=== PATIENT | female | born 1980 | race Caucasian/White ===

== ENCOUNTER 2020-01-24 14:41 | Outpatient (CLI) | payer OTHER, SELFPAY ==
--- NOTE | ~2020-01-24 | MM_ITS ---
EXAMINATION: MM screening candice BI w chandrika HISTORY: Screening mammogram TECHNIQUE: Craniocaudal and mediolateral oblique 3-D tomosynthesis images were obtained and synthetic 2-D images were generated. CAD analysis was submitted and interpreted. COMPARISON: No prior mammogram is available for comparison at this institution. BREAST PARENCHYMAL COMPOSITION: There are scattered areas of fibroglandular density. In FINDINGS: There is no evidence of suspicious mass, calcification, or architectural distortion to sugg est malignancy in either breast. There has been no suspicious interval change. IMPRESSION: 1. No mammographic evidence of malignancy. 2. Recommend routine screening mammography in one year. BI-RADS Category 1: Negative Reviewed, dictated and finalized at location A.
--- NOTE | ~2020-01-24 | US_ITS ---
US axilla LT DATE: 01/24/2020 14:20 INDICATION: Localized swelling, mass at left axilla TECHNIQUE: Real-time imaging and color flow imaging of left axillary soft tissues COMPARISON: None FINDINGS: There is a 7.0 x 4.6 x 10.4 mm heterogeneous hypoechoic solid mass with some calcifications . There is through transmission posterior enhancement. The sonographic appearance is benign, most lik abigail a fibroadenoma. IMPRESSION: BI-RADS Category 2: Benign Ultrasound guided biopsy is available for definitive tissue diagnosis if clinically desired. Reviewed, dictated and finalized at Location [facility]. Reviewed, dictated and finalized at location A. IMPRESSION: BI-RADS Category 2: Benign Ultrasound guided biopsy is available for definitive tissue diagnosis if clinic ally desired.
[2020-01-24 15:30] LABS: Hemoglobin 12.8 g/dL (12.0-15.0); Mean Corpuscular HGB Conc 32.8 g/dl (32-36); Mean Corpuscular Hemoglobin 27.2 pg (26-34); Mean Corpuscular Volume 82.8 fl (80-100); Mean Platelet Volume 9.1 fl (7.4-10.4); Platelet Count Result 354 k/mm3 (150-375); Red Blood Count 4.71 M/mm3 (4.2-5.4); White Blood Count 12.7 K/mm3 (4.5-10.0)
[2020-01-24 15:42] LABS: Alanine Aminotransferase 21 U/L (4-35); Albumin Level 4.2 g/dL (3.5-5.1); Alkaline Phosphatase 93 U/L (38-126); Anion Gap 7 mmol/L (8-16); Aspartate Amino Transferase 23 U/L (14-36); Bilirubin,Total 0.6 mg/dL (0.2-1.3); Blood Urea Nitrogen 9 mg/dL (7-17); Calcium 9.5 mg/dL (8.4-10.2); Carbon Dioxide 26 mmol/L (22-30); Chloride 101 mmol/L (98-107); Cholesterol 167 mg/dL (0-200); Estimated Glomerular Filt Rate > 60; Glucose 95 mg/dL (65-105); HDL Direct 38 mg/dL; Potassium 3.6 mmol/L (3.4-5.0); Sodium 134 mmol/L (137-145); Triglycerides 266 mg/dL (<150)
[2020-01-24 15:43] LABS: Band Neutrophils Percent 3 % (0-6); Neutrophils Absolute Manual 6.73 K/mm3 (1.7-7.2); Neutrophils Percent Manual 50 % (46-73); Total Cells Counted 100
[2020-01-24 15:44] LABS: Atypical Lymphocytes Present; Eosinophils Absolute Manual 0.12 K/mm3 (0.02-0.5); Eosinophils Percent Manual 1 % (0-4); Lymphocytes Absolute Manual 5.46 K/mm3 (1.1-4.5); Lymphocytes Percent Manual 43 % (18-44); Monocytes Absolute Manual 0.38 K/mm3 (0.1-0.90); Monocytes Percent Manual 3 % (3-9); Platelet Estimate Adequate (Adequate)
[2020-01-24 15:53] LABS: LDL Cholesterol Direct 72 mg/dL
== END 2020-01-24 14:42 | disposition home or self-care (01) ==
PROVIDERS: PCP Internal Medicine; Visit Provider Clinical Nurse Specialist
DX: Z13.228 Encounter for screening for other metabolic disorders (principal); Z13.220 Encounter for screening for lipoid disorders; R22.30 Localized swelling, mass and lump, unspecified upper limb; Z12.31 Encounter for screening mammogram for malignant neoplasm of breast
CPT/HCPCS: 36415; 76882; 77063; 77067; 80053; 80061; 85025

== ENCOUNTER 2022-10-24 08:31 | Outpatient (CLI) | payer OTHER, SELFPAY ==
--- NOTE | ~2022-10-24 | XR_ITS ---
Cervical Spine: AP, lateral, open-mouth views Clinical History: Pain Findings: The normal lordotic curve is maintained. The vertebral bodies and posterior elements appea r intact. The intervertebral disc spaces are well maintained. Pre-vertebral soft tissues are unremar kable. Impression: No significant abnormality is seen. [place], [place] [facility] [place]ression: No significant abnormality is seen.
== END 2022-10-24 08:32 | disposition home or self-care (01) ==
PROVIDERS: PCP Internal Medicine; Visit Provider Nurse Practitioner
DX: M54.2 Cervicalgia (principal)
CPT/HCPCS: 72050

== ENCOUNTER 2023-05-02 09:09 | Outpatient (CLI) | payer OTHER, SELFPAY ==
[2023-05-02 09:46] LABS: Basophils Percent Auto 0.4 % (0.2-1.2); Eosinophils Absolute Auto 0.2 K/mm3 (0-0.3); Hematocrit 45.6 % (37.0-47.0); Hemoglobin 15.2 g/dL (12.0-15.0); Immature Granulocyte Absolute 0.03 K/mm3 (0.00-0.031); Immature Granulocyte Percent A 0.3 % (0-0.5); Lymphocytes Absolute Auto 1.86 K/mm3 (0.9-3.2); Lymphocytes Percent Auto 16.9 % (18.3-44.2); Mean Corpuscular HGB Conc 33.3 g/dl (32-36); Mean Corpuscular Volume 86.9 fl (80-100); Mean Platelet Volume 9.2 fl (7.4-10.4); Monocytes Absolute Auto 0.6 K/mm3 (0.1-0.6); Monocytes Percent Auto 5.3 % (2.6-8.5); Neutrophils Absolute Auto 8.3 K/mm3 (1.3-6.7); Neutrophils Percent Auto 75.1 % (45.5-73.1); Platelet Count Result 318 k/mm3 (150-375); Red Blood Count 5.25 M/mm3 (4.2-5.4); Red Cell Distribution Width 12.6 % (11.5-14.5)
[2023-05-02 10:21] LABS: LDL Cholesterol Direct 75 mg/dL
[2023-05-02 10:30] LABS: Alanine Aminotransferase 134 U/L (6-35); Albumin Level 4.7 g/dL (3.5-5.1); Alkaline Phosphatase 64 U/L (38-126); Anion Gap 11 mmol/L (8-16); Aspartate Amino Transferase 168 U/L (14-36); Blood Urea Nitrogen 17 mg/dL (7-17); Calcium 8.7 mg/dL (8.4-10.2); Carbon Dioxide 24 mmol/L (22-30); Chloride 101 mmol/L (98-107); Cholesterol 210 mg/dL (0-200); Estimated Glomerular Filt Rate > 60; Glucose 114 mg/dL (65-110); HDL Direct 35 mg/dL; Potassium 4.2 mmol/L (3.4-5.0); Sodium 136 mmol/L (137-145); Triglycerides 299 mg/dL (<150)
== END 2023-05-02 09:10 | disposition home or self-care (01) ==
LOC: ANHLAB 09:11
PROVIDERS: PCP Internal Medicine; Visit Provider Nurse Practitioner
DX: Z00.00 Encounter for general adult medical examination without abnormal findings (principal); Z13.220 Encounter for screening for lipoid disorders
CPT/HCPCS: 36415; 80053; 80061; 85025

== ENCOUNTER 2023-05-03 09:27 | Outpatient (CLI) | payer OTHER, SELFPAY ==
[2023-05-03 10:00] LABS: Hemoglobin A1C 5.5 % (<5.7)
[2023-05-03 10:01] LABS: Alanine Aminotransferase 133 U/L (6-35); Albumin Level 4.5 g/dL (3.5-5.1); Alkaline Phosphatase 79 U/L (38-126); Anion Gap 10 mmol/L (8-16); Aspartate Amino Transferase 60 U/L (14-36); Bilirubin,Total 0.5 mg/dL (0.2-1.3); Blood Urea Nitrogen 16 mg/dL (7-17); Calcium 9.6 mg/dL (8.4-10.2); Carbon Dioxide 27 mmol/L (22-30); Chloride 102 mmol/L (98-107); Estimated Glomerular Filt Rate > 60; Glucose 118 mg/dL (65-110); Potassium 4.2 mmol/L (3.4-5.0); Sodium 139 mmol/L (137-145)
== END 2023-05-03 09:28 | disposition home or self-care (01) ==
LOC: ANHLAB 09:28
PROVIDERS: PCP Internal Medicine; Visit Provider Clinical Nurse Specialist
DX: R73.9 Hyperglycemia, unspecified (principal); R74.01 Elevation of levels of liver transaminase levels
CPT/HCPCS: 36415; 80053; 83036

== ENCOUNTER 2023-05-15 15:30 | Outpatient (CLI) | payer OTHER, SELFPAY ==
[2023-05-15 17:13] LABS: Alanine Aminotransferase 24 U/L (6-35); Albumin Level 4.3 g/dL (3.5-5.1); Alkaline Phosphatase 66 U/L (38-126); Anion Gap 8 mmol/L (8-16); Aspartate Amino Transferase 21 U/L (14-36); Bilirubin,Total 0.4 mg/dL (0.2-1.3); Blood Urea Nitrogen 16 mg/dL (7-17); Calcium 9.5 mg/dL (8.4-10.2); Carbon Dioxide 25 mmol/L (22-30); Chloride 104 mmol/L (98-107); Estimated Glomerular Filt Rate > 60; Glucose 94 mg/dL (65-110); Potassium 3.9 mmol/L (3.4-5.0); Sodium 137 mmol/L (137-145)
== END 2023-05-15 15:31 | disposition home or self-care (01) ==
LOC: ANHLAB 15:31
PROVIDERS: PCP Internal Medicine; Visit Provider Clinical Nurse Specialist
DX: R74.01 Elevation of levels of liver transaminase levels (principal)
CPT/HCPCS: 36415; 80053

== ENCOUNTER 2024-04-30 12:56 | Outpatient (CLI) | payer BC, SELFPAY ==
[2024-04-30 13:57] LABS: Basophils Absolute Auto 0.1 K/mm3 (0.0-0.1); Basophils Percent Auto 0.6 % (0.2-1.2); Eosinophils Absolute Auto 0.3 K/mm3 (0-0.3); Eosinophils Percent Auto 2.8 % (0-4.4); Hematocrit 41.8 % (37.0-47.0); Hemoglobin 13.8 g/dL (12.0-15.0); Immature Granulocyte Absolute 0.04 K/mm3 (0.00-0.031); Immature Granulocyte Percent A 0.4 % (0-0.5); Lymphocytes Absolute Auto 2.91 K/mm3 (0.9-3.2); Mean Corpuscular Hemoglobin 28.4 pg (26-34); Monocytes Absolute Auto 0.5 K/mm3 (0.1-0.6); Monocytes Percent Auto 5.3 % (2.6-8.5); Neutrophils Absolute Auto 5.4 K/mm3 (1.3-6.7); Neutrophils Percent Auto 58.9 % (45.5-73.1); Platelet Count Result 341 k/mm3 (150-375); Red Blood Count 4.86 M/mm3 (4.2-5.4); Red Cell Distribution Width 12.6 % (11.5-14.5); White Blood Count 9.1 K/mm3 (4.5-10.0)
[2024-04-30 14:11] LABS: Alanine Aminotransferase 31 U/L (6-35); Albumin Level 4.5 g/dL (3.5-5.1); Alkaline Phosphatase 70 U/L (38-126); Anion Gap 4 mmol/L (4-12); Aspartate Amino Transferase 25 U/L (14-36); Bilirubin,Total 0.5 mg/dL (0.2-1.3); Blood Urea Nitrogen 16 mg/dL (7-17); Calcium 9.2 mg/dL (8.4-10.2); Carbon Dioxide 24 mmol/L (22-30); Chloride 108 mmol/L (98-107); Cholesterol 184 mg/dL (0-200); Estimated Glomerular Filt Rate > 60; Glucose 100 mg/dL (65-110); HDL Direct 40 mg/dL; Potassium 4.3 mmol/L (3.4-5.0); Sodium 136 mmol/L (137-145); Triglycerides 242 mg/dL (<150)
[2024-04-30 14:22] LABS: LDL Cholesterol Direct 65 mg/dL
[2024-04-30 14:27] LABS: Vitamin D 25 Hydroxy 22.5 ng/mL
== END 2024-04-30 12:57 | disposition home or self-care (01) ==
LOC: ANHLAB 12:57
PROVIDERS: PCP Internal Medicine; Visit Provider Nurse Practitioner
DX: J45.909 Unspecified asthma, uncomplicated (principal); R73.9 Hyperglycemia, unspecified; Z68.36 Body mass index [BMI] 36.0-36.9, adult; R00.0 Tachycardia, unspecified; E55.9 Vitamin D deficiency, unspecified
CPT/HCPCS: 36415; 80053; 80061; 82306; 84443; 85025

== ENCOUNTER 2024-07-24 21:18 | Inpatient (IN) | payer BC, SELFPAY ==
--- NOTE | ~2024-07-24 | XR_ITS ---
XR chest 1V portable DATE: 07/24/2024 22:26 INDICATION: Chest pain TECHNIQUE: 2 portable supine AP views COMPARISON: None FINDINGS: Normal heart size. No hilar or mediastinal enlargement. No pulmonary infiltrate or consolid ation, pleural effusion or pulmonary vascular congestion or pneumothorax. Included skeletal structures are unremarkable. Status post cholecystectomy. IMPRESSION: No active cardiopulmonary disease Reviewed, dictated and finalized at location A.
--- NOTE | ~2024-07-24 | CT_ITS ---
CLINICAL INDICATION: Nausea vomiting and diarrhea COMPARISON: None. Reference is made to an ultrasound examination of the pelvis performed 10/17/2010 de monstrated multiple cysts within the cervix. TECHNIQUE: Multiple contiguous axial images of the abdomen and pelvis were performed following the ad ministration of with 100 mL Omnipaque-350 intravenous contrast The dose-length product (DLP) was 1013.50 mGy-cm. Automated exposure control and iterative reconstruction technique were employed. FINDINGS/OBSERVATIONS: Visualized lower thorax: The visualized portions of the bilateral lung bases are clear. Liver: The liver is not entirely included on the submitted images, limiting its evaluation. The included portions of the liver demonstrates fatty infiltration and homogeneous enhancement. Gallbladder and biliary system: The gallbladder is surgically absent. Pancreas: The pancreas enhances homogeneously without ductal dilatation. Spleen: The spleen enhances homogeneously and is not enlarged measuring 8 cm in longitudinal dimension. Kidneys: The bilateral kidneys enhance symmetrically without hydronephrosis or renal calculi. Adrenal glands: Unremarkable. Gastrointestinal tract: Fecal stasis within the colon. Appendix: The air-filled appendix is of normal caliber (axial series, images 122 through 132) Vasculature: Unremarkable. Lymph nodes: No pathologically enlarged or morphologically suspicious lymph nodes within the retroperitoneum or at the root of the mesentery. Pelvic structures: The bladder is minimally distended, and otherwise unremarkable. The uterus is anteverted and anteflexed and demonstrates multiple areas of decreased attenuation with in the lower uterine segment, corresponding to patient's prior ultrasound examination. Body wall and musculoskeletal: No significant degenerative disease within the lower thoracic or lumbosacral spine. IMPRESSION: No acute pathology is identified within the abdomen or pelvis, as detailed above. Findings within the lower uterine segment/cervix corresponding to prior ultrasound more than 10 years earlier for which additional ultrasound is recommended, if not already performed. Reviewed, dictated and finalized at location A. IMPRESSION: No acute pathology is identified within the abdomen or pelvis, as detailed abov e. Findings within the lower uterine segment/cervix corresponding to prior ultraso und more than 10 years earlier for which additional ultrasound is recommended, if not already performed.
--- NOTE | 2024-07-24 21:19 | ECG_ITS ---
Test Date: 2024-07-24 21:27:09 Measurements Intervals [place] Rate: 95 P: 53 CT: 152 QRS: 46 QRSD: 89 T: 49 QT: 373 QTc: 470 Interpretive Statements SINUS RHYTHM LOW QRS VOLTAGE IN PRECORDIAL LEADS [QRS DEFLECTION < 1.0 mV IN CHEST LEADS] No previous ECG available for comparison Electronically Signed On 07-25-2024 13:22:55 CDT by Summer Selby M.D.
--- OUTSIDE RECORDS SUMMARY | 2024-07-24 21:20 | XMS_ITS | Clinical Summary ---
Author Organization [facility] Address [address] [place] [address] Care Team Providers Care Clinical Implementation Specialist Name Role Phone Aron Maxwell DO Primary Care Provider [phone] Source Comments [facility],non-owned Affiliates and Associated Physician Practices is amultiple site organization consisting of ambulatory clinics and hospital sitesin [place], [place], [place] and [place]. This disclosure is being madepursuant to the Care Everywhere program and may not contain all information available regarding this patient. Last updated 18.[facility] Allergies No known active allergies Medications * Be aware that medications may not be up to date on this document. Alwaysverify current medications with the patient. Medication Sig Dispensed Refills Start Date End Date Status Omeprazole (PRILOSEC PO) Active albuterol HFA (PROVENTIL;VENTOLIN;P ROAIR) 108 (90 BASE) MCG/ACT inhaler Inhale 2 puffs by mouth every 4 hours as needed Active albuterol (PROVENTIL;VENTOLIN) (2.5 MG/3ML) 0.083% nebulizer solutionIndications:A cute bronchitis with asthma with acute exacerbation (HCC) Inhale 2.5 mg by mouth every 6 hours as needed for Shortness of Breath or Wheezing 25 vial 06/27/2018 Active budesonide-formoterol (SYMBICORT) 80-4.5 MCG/ACT inhalerIndications:As thma Inhale 2 puffs by mouth 2 times daily Reasons: Asthma 1 Inhaler 06/27/2018 Active Social History Tobacco Use Types Packs/Day Years Used Date Smoking Tobacco: Former Cigarettes Q uit: 2016 Smokeless Tobacco: Never Sex and Gender Information Value Date Recorded Sex Assigned at Not on file Gender Identity Not on file Sexual Orientation Not on file Last Filed Vital Signs Vital Sign Reading Time Taken Comments Blood Pressure 130/88 06/27/2018 12:00 PM HAND EDGE BANDER Pulse 95 06/27/2018 12:00 PM HAND EDGE BANDER Temperature 36.4 C (97.6 F) 06/27/2018 12:00 PM HAND EDGE BANDER Respiratory Rate 15 06/27/2018 12:00 PM HAND EDGE BANDER Oxygen Saturation 99% 06/27/2018 12:00 PM HAND EDGE BANDER Inhaled Oxygen Concentration - - Weight 81.6 kg (180 lb) 06/27/2018 12:00 PM HAND EDGE BANDER Height 165.1 cm (5' 5 ) 06/27/2018 12:00 PM HAND EDGE BANDER Body Mass Index 29.95 06/27/2018 12:00 PM HAND EDGE BANDER Plan of Treatment Health Maintenance Due Date Last Done Comments COLOGUARD (AGES 45-75) - COL ON CA SCREENING 1979 COLON MONITORING 1979 COLONOSCOPY - COLON CA SCREENING 1979 CT COLONOGRAPHY - COLON CA SCREENING 1979 Colorectal Cancer Screening 1979 FIT - COLON CA SCREENING 1979 FLEX SIG - COLON CA SCREENING 1979 LIPID TESTING 1979 MAMMOGRAM 1979 PAP SMEAR 1979 HIV SCREENING 1994 HEPATITIS C SCREENING 03/20/1997 DTAP/TDAP/TD VACCINES (1 - Tdap) 1998 HEPATITIS B VACCINE (1 of 3 - 19+ 3-dose series) 1998 COVID-19 VACCINE (2023-2 5 season) 2024 INFLUENZA VACCINE (#1) 2024 DEPRESSION SCREENING 05/05/2024 ZOSTER VACCINE (1 of 2) 2029 HIB VACCINE Aged Out No longer eligi ble based on patient's age to complete this topic HPV VACCINE Aged Out No longer eligi ble based on patient's age to complete this topic MENINGOCOCCAL (Group B) VACC INE SHARED DECISION-MAKING Aged Out No longer eligibl e based on patient's age to complete this topic MENINGOCOCCAL GROUPS A/C/Y/W VACCINE Aged Out No longer eligible b ased on patient's age to complete this topic PNEUMOCOCCAL VACCINE Aged Out No long er eligible based on patient's age to complete this topic Care Teams Clinical Implementation Specialist Relationship Specialty Start Date End Date Aron Maxwell DO PCP - General Internal Medicine 05/14/17
[2024-07-24 21:47] LABS: Basophils Percent Auto 0.3 % (0.2-1.2); Eosinophils Percent Auto 0.3 % (0-4.4); Hematocrit 43.2 % (37.0-47.0); Hemoglobin 14.6 g/dL (12.0-15.0); Immature Granulocyte Absolute 0.12 K/mm3 (0.00-0.031); Immature Granulocyte Percent A 0.8 % (0-0.5); Lymphocytes Absolute Auto 7.06 K/mm3 (0.9-3.2); Lymphocytes Percent Auto 47.5 % (18.3-44.2); Mean Corpuscular HGB Conc 33.8 g/dl (32-36); Mean Corpuscular Hemoglobin 28.6 pg (26-34); Mean Corpuscular Volume 84.7 fl (80-100); Mean Platelet Volume 9.2 fl (7.4-10.4); Monocytes Absolute Auto 0.8 K/mm3 (0.1-0.6); Monocytes Percent Auto 5.3 % (2.6-8.5); Neutrophils Absolute Auto 6.8 K/mm3 (1.3-6.7); Neutrophils Percent Auto 45.8 % (45.5-73.1); Platelet Count Result 396 k/mm3 (150-375); Red Cell Distribution Width 13.2 % (11.5-14.5); White Blood Count 14.9 K/mm3 (4.5-10.0)
[2024-07-24 22:00] LABS: INR 0.9; Partial Thromboplastin Time 23.9 Seconds (22.3-36.8); Prothrombin Time 12.5 Seconds (11.1-14.7)
--- OUTSIDE RECORDS SUMMARY | 2024-07-24 22:01 | XMS_ITS | Clinical Summary ---
Author Organization [facility] [employer] Address [address] [place] [address] Care Team Providers Care Tank Pumper Name Role Phone Aron Maxwell DO Primary Care Provider [phone] Source Comments [facility] [employer],non-owned Affiliates and Associated Physician Practices is amultiple site organization consisting of ambulatory clinics and hospital sitesin [place], [place], [place] and [place]. This disclosure is being madepursuant to the Care Everywhere program and may not contain all information available regarding this patient. Last updated 18.[facility] [employer] Allergies No known active allergies Medications * [...] Comments Blood Pressure 130/88 06/27/2018 12:00 PM FUR TRIMMING MACHINE OPERATOR Pulse 95 06/27/2018 12:00 PM FUR TRIMMING MACHINE OPERATOR Temperature 36.4 C (97.6 F) 06/27/2018 12:00 PM FUR TRIMMING MACHINE OPERATOR Respiratory Rate 15 06/27/2018 12:00 PM FUR TRIMMING MACHINE OPERATOR Oxygen Saturation 99% 06/27/2018 12:00 PM FUR TRIMMING MACHINE OPERATOR Inhaled Oxygen Concentration - - Weight 81.6 kg (180 lb) 06/27/2018 12:00 PM FUR TRIMMING MACHINE OPERATOR Height 165.1 cm (5' 5 ) 06/27/2018 12:00 PM FUR TRIMMING MACHINE OPERATOR Body Mass Index 29.95 06/27/2018 12:00 PM FUR TRIMMING MACHINE OPERATOR Plan of Treatment Health Maintenance Due Date [...] age to complete this topic Care Teams Tank Pumper Relationship Specialty Start Date End Date Aron Maxwell DO PCP - General Internal Medicine 05/14/17
[2024-07-24 22:03] LABS: Alanine Aminotransferase 33 U/L (6-35); Albumin Level 4.5 g/dL (3.5-5.1); Alkaline Phosphatase 99 U/L (38-126); Anion Gap 13 mmol/L (4-12); Aspartate Amino Transferase 40 U/L (14-36); Bilirubin,Total 0.4 mg/dL (0.2-1.3); Blood Urea Nitrogen 14 mg/dL (7-17); Calcium 9.7 mg/dL (8.4-10.2); Carbon Dioxide 19 mmol/L (22-30); Chloride 106 mmol/L (98-107); Estimated CRCL calculation 86 ml/min; Estimated Glomerular Filt Rate > 60; Glucose 164 mg/dL (65-110); Potassium 3.7 mmol/L (3.4-5.0); Sodium 138 mmol/L (137-145)
[2024-07-24 22:07] LABS: Lipase 3279 U/L (23-300)
[2024-07-24 22:11] VITALS: BP 136/101; PULSE 87; RESP 19; O2SAT 95
[2024-07-24 22:11] LABS: Troponin I < 0.012 ng/mL (0.000-0.034)
--- NOTE | 2024-07-24 22:27 | ED_ITS ---
HPI - Nausea/Vomiting/Diarrhea General Chief complaint: Nausea/Vomiting/Diarrhea Stated complaint: throwing up, chest and back pain Time Seen by Provider: 07/24/24 21:32 History of Present Illness HPI Narrative: 44-year-old female with history of tubal ligation, s/p cholecystectomy, asthma presents to the emergency department for epigastric abdominal pain that radiates to her back and chest pain that started at 8:00 p.m. tonight after eating quail eggs. Patient states she has had nausea, vomiting and watery diarrhea. She states she has never had this happen before. Denies fever. No aggravating or alleviating factors. Denies cough or congestion, shortness of breath. Denies recent surgeries or hospitalizations, recent antibiotic use, travel. She does not drink alcohol. Related Data Allergies Allergy/AdvReac Type Severity Reaction Status Date / Time adhesive tape Allergy Unknown skin Verified 06/10/24 15:24 breakdown TAPE Allergy Mild skin Uncoded 06/10/24 15:24 [email or web address] Review of Systems 2 Review of Systems: All systems reviewed & are unremarkable except as noted in HPI and below PMFSH Past Medical History Medical History (Updated 07/25/24 @ 05:08 by Jacquelyn Cook PA-C) Hernia Osteoarthritis Heartburn Asthma Allergies Surgical History Surgical History (Updated 07/25/24 @ 05:06 by Jacquelyn Cook PA-C) History of endometrial ablation (2010) History of arthroscopy of hip (09/2015) History of cholecystectomy (2001) History of bilateral tubal ligation (2004) Family History Family History Mother Hypertension Asthma Family history of diabetes mellitus in first degree relative Sibling Asthma Family history of diabetes mellitus in first degree relative Father Patient's father is in good health Grandparent Diabetes mellitus Other Breast cancer Social History Social History (Updated 07/25/24 @ 02:08 by Jacquelyn Cook PA-C) Social History: Surrogate medical decision maker: Clint Arias, spouse. Code status: Full code. Smoking packs per day: 1 Smoking cigarettes per day: 20.0 Years smoked: 20 Smoking pack-years: 20.00 Smoking status: Former smoker Alcohol intake: never Alcohol use details: a couple times a year Substance use: never Substance use type: does not use Do You Feel Safe in your Home?: Yes Lack of Transportation: No Lack of Food: Never True Current Housing: I Have Housing Concerned About Future Housing: No Difficulty Paying Gas/Electric Bills: No Difficulty Paying for Meds: No Currently Unemployed: No Education: High School Diploma/GED Difficulty w/ Childcare or Family Care: No Living arrangements: with family 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 HEAD: Normocephalic, atraumatic. EYES: EOMI. ENT: Nares clear, no rhinorrhea or epistaxis. Mucous membranes moist. NECK: Supple. CHEST: Clear to auscultation. No respiratory distress. HEART: Regular rate and rhythm. No murmur heard. Normal peripheral pulses. ABDOMEN: Normoactive bowel sounds. Abdomen soft with tenderness in the epigastrium with voluntary guarding, no rebound or rigidity. No CVA tenderness EXTREMITIES: Normal range of motion. No edema. SKIN: Warm, dry, no rash. NEURO: No focal deficits. Alert and oriented x3 Course Vital Signs Vital signs: Vital Signs Pulse Rate 87 07/24/24 22:11 Respiratory Rate 19 07/24/24 22:11 Blood Pressure 136/101 H 07/24/24 22:11 Pulse Oximetry 95 07/24/24 22:11 Temperature 98.7 F 07/25/24 14:00 Pulse Rate 82 07/25/24 14:00 Respiratory Rate 18 07/25/24 14:00 Blood Pressure 108/72 07/25/24 14:00 Pulse Oximetry 99 07/25/24 14:00 Oxygen Delivery Room Air 07/25/24 09:38 Fraction of Inspired Oxygen 21 07/25/24 08:53 MDM - Nausea/Vomiting/Diarrhea MDM Narrative Medical decision making narrative: 44-year-old female presents to emergency department for sudden-onset epigastric abdominal pain that radiates to her back, chest pain, N/V/D that started at 8:00 p.m. today after eating quail eggs. Vitals with elevated blood pressure, otherwise unremarkable. Patient is ill-appearing. Abdomen is soft with tenderness involuntary guarding in the epigastrium. CBC with leukocytosis of 14.9, no anemia. Chemistries with a bicarb of 19 and anion gap of 13, likely dehydration. Fluids provided. Lipase is elevated to 3279 indicating pancreatitis which is consistent with patient's presentation. Her AST is mildly elevated at 40, ALT normal at 33, alk-phos and bilirubin are within normal limits. Patient denies use of EtOH, she is s/p cholecystectomy. EKG shows normal sinus rhythm with a rate of 95 ppm, normal CT interval, normal QRS duration, normal QTC, no ischemic changes. Troponin undetectable. C diff negative. CT abdomen pelvis shows hepatic steatosis, multiple cystic lesions in the cervix which are likely nabothian cysts, tubal ligation, cholecystectomy. Patient updated on results. She was given IV fluids, morphine, Zofran and Pepcid with minimal improvement. Plan to admit for hydration and pain control. Patient is agreeable with this. Discussed with hospitalist BARRON Valladares agrees to admission. Lab Data 07/25/24 05:55 07/25/24 05:55 Labs: Lab Results 07/24/24 07/24/24 07/24/24 Range/Units 21:33 22:32 23:25 WBC 14.9 H (4.5-10.0) K/mm3 RBC 5.10 (4.2-5.4) M/mm3 Hgb 14.6 (12.0-15.0) g/dL Hct 43.2 (37.0-47.0) % MCV 84.7 (80-100) fl MCH 28.6 (26-34) pg MCHC 33.8 (32-36) g/dl RDW 13.2 (11.5-14.5) % Plt Count 396 H (150-375) k/mm3 MPV 9.2 (7.4-10.4) fl Immature Gran % (Auto) 0.8 H (0-0.5) % Neut % (Auto) 45.8 (45.5-73.1) % Lymph % (Auto) 47.5 H (18.3-44.2) % [place] % (Auto) 5.3 (2.6-8.5) % Eos % (Auto) 0.3 (0-4.4) % Baso % (Auto) 0.3 (0.2-1.2) % Lymph # (Auto) 7.06 H (0.9-3.2) K/mm3 [place] # (Auto) 0.8 H (0.1-0.6) K/mm3 Eos # (Auto) 0.0 (0-0.3) K/mm3 Baso # (Auto) 0.0 (0.0-0.1) K/mm3 Abs Immat Gran (auto) 0.12 H (0.00-0.031) K/mm3 Absolute Neuts (auto) 6.8 H (1.3-6.7) K/mm3 Absolute Nucleated RBC 0.000 (0.0-0.012) K/mm3 Nucleated RBC % 0.0 (0.0-0.2) % PT 12.5 (11.1-14.7) Seconds INR 0.9 APTT 23.9 (22.3-36.8) Seconds Sodium 138 (137-145) mmol/L Potassium 3.7 (3.4-5.0) mmol/L Chloride 106 (98-107) mmol/L Carbon Dioxide 19 L (22-30) mmol/L Anion Gap 13 H (4-12) mmol/L BUN 14 (7-17) mg/dL Creatinine 0.76 (0.7-1.0) mg/dL Estim Creat Clear Calc 86 ml/min Estimated GFR > 60 (59 - ) Glucose 164 H (65-110) mg/dL Lactic Acid 2.0 (0.7-2.0) mmol/L Calcium 9.7 (8.4-10.2) mg/dL Total Bilirubin 0.4 (0.2-1.3) mg/dL AST 40 H (14-36) U/L ALT 33 (6-35) U/L Alkaline Phosphatase 99 (38-126) U/L Troponin I < 0.012 (0.000-0.034) ng/mL Total Protein 8.0 (6.3-8.2) g/dL Albumin 4.5 (3.5-5.1) g/dL Triglycerides (<150) mg/dL Lipase 3279 H (23-300) U/L Urine Color (Yellow) Urine Appearance (Clear) Urine pH (5.0-9.0) Ur Specific [place] (1.001-1.035) Urine Protein (Negative) mg/dL Urine Glucose (UA) (Negative) mg/dL Urine Ketones (Negative) mg/dL Ur Blood (Man) (Negative) Urine Nitrate (Negative) Urine Bilirubin (Negative) Urine Urobilinogen (<2.0) mg/dL Leukocyte Esterase Rfl (Negative) KHUSHBOO/UL Urine RBC (0-2) /hpf Urine WBC (0-3) /hpf Ur Squamous Epith Cells (Few) /hpf Urine Bacteria /hpf Urine Casts C. difficile (PCR) Negative (NEGATIVE) 07/25/24 07/25/24 07/25/24 Range/Units 00:41 01:13 05:55 WBC 17.9 H (4.5-10.0) K/mm3 RBC 4.13 L (4.2-5.4) M/mm3 Hgb 12.0 (12.0-15.0) g/dL Hct 36.1 L (37.0-47.0) % MCV 87.4 (80-100) fl MCH 29.1 (26-34) pg MCHC 33.2 (32-36) g/dl RDW 13.4 (11.5-14.5) % Plt Count 280 (150-375) k/mm3 MPV 9.2 (7.4-10.4) fl Immature Gran % (Auto) 0.7 H (0-0.5) % Neut % (Auto) 78.1 H (45.5-73.1) % Lymph % (Auto) 15.5 L (18.3-44.2) % [place] % (Auto) 3.1 (2.6-8.5) % Eos % (Auto) 2.3 (0-4.4) % Baso % (Auto) 0.3 (0.2-1.2) % Lymph # (Auto) 2.77 (0.9-3.2) K/mm3 [place] # (Auto) 0.6 (0.1-0.6) K/mm3 Eos # (Auto) 0.4 H (0-0.3) K/mm3 Baso # (Auto) 0.1 (0.0-0.1) K/mm3 Abs Immat Gran (auto) 0.12 H (0.00-0.031) K/mm3 Absolute Neuts (auto) 14.0 H (1.3-6.7) K/mm3 Absolute Nucleated RBC 0.000 (0.0-0.012) K/mm3 Nucleated RBC % 0.0 (0.0-0.2) % PT (11.1-14.7) Seconds INR APTT (22.3-36.8) Seconds Sodium 139 (137-145) mmol/L Potassium 4.1 (3.4-5.0) mmol/L Chloride 108 H (98-107) mmol/L Carbon Dioxide 23 (22-30) mmol/L Anion Gap 8 (4-12) mmol/L BUN 13 (7-17) mg/dL Creatinine 0.81 (0.7-1.0) mg/dL Estim Creat Clear Calc 82 ml/min Estimated GFR > 60 (59 - ) Glucose 110 (65-110) mg/dL Lactic Acid (0.7-2.0) mmol/L Calcium 8.0 L (8.4-10.2) mg/dL Total Bilirubin 0.4 (0.2-1.3) mg/dL AST 50 H (14-36) U/L ALT 57 H (6-35) U/L Alkaline Phosphatase 68 (38-126) U/L Troponin I < 0.012 < 0.012 (0.000-0.034) ng/mL Total Protein 6.0 L (6.3-8.2) g/dL Albumin 3.4 L (3.5-5.1) g/dL Triglycerides 124 (<150) mg/dL Lipase (23-300) U/L Urine Color Yellow (Yellow) Urine Appearance Clear (Clear) Urine pH 5.0 (5.0-9.0) Ur Specific [place] > 1.045 H (1.001-1.035) Urine Protein Trace (Negative) mg/dL Urine Glucose (UA) Negative (Negative) mg/dL Urine Ketones Trace H (Negative) mg/dL Ur Blood (Man) Negative (Negative) Urine Nitrate Negative (Negative) Urine Bilirubin Negative (Negative) Urine Urobilinogen 0.2 (<2.0) mg/dL Leukocyte Esterase Rfl Negative (Negative) KHUSHBOO/UL Urine RBC 0-2 (0-2) /hpf Urine WBC 0-5 (0-3) /hpf Ur Squamous Epith Cells None seen (Few) /hpf Urine Bacteria None seen /hpf Urine Casts 0-2 C. difficile (PCR) (NEGATIVE) 07/25/24 Range/Units 05:55 WBC (4.5-10.0) K/mm3 RBC (4.2-5.4) M/mm3 Hgb (12.0-15.0) g/dL Hct (37.0-47.0) % MCV (80-100) fl MCH (26-34) pg MCHC (32-36) g/dl RDW (11.5-14.5) % Plt Count (150-375) k/mm3 MPV (7.4-10.4) fl Immature Gran % (Auto) (0-0.5) % Neut % (Auto) (45.5-73.1) % Lymph % (Auto) (18.3-44.2) % [place] % (Auto) (2.6-8.5) % Eos % (Auto) (0-4.4) % Baso % (Auto) (0.2-1.2) % Lymph # (Auto) (0.9-3.2) K/mm3 [place] # (Auto) (0.1-0.6) K/mm3 Eos # (Auto) (0-0.3) K/mm3 Baso # (Auto) (0.0-0.1) K/mm3 Abs Immat Gran (auto) (0.00-0.031) K/mm3 Absolute Neuts (auto) (1.3-6.7) K/mm3 Absolute Nucleated RBC (0.0-0.012) K/mm3 Nucleated RBC % (0.0-0.2) % PT (11.1-14.7) Seconds INR APTT (22.3-36.8) Seconds Sodium (137-145) mmol/L Potassium (3.4-5.0) mmol/L Chloride (98-107) mmol/L Carbon Dioxide (22-30) mmol/L Anion Gap (4-12) mmol/L BUN (7-17) mg/dL Creatinine (0.7-1.0) mg/dL Estim Creat Clear Calc ml/min Estimated GFR (59 - ) Glucose (65-110) mg/dL Lactic Acid (0.7-2.0) mmol/L Calcium (8.4-10.2) mg/dL Total Bilirubin (0.2-1.3) mg/dL AST (14-36) U/L ALT (6-35) U/L Alkaline Phosphatase (38-126) U/L Troponin I (0.000-0.034) ng/mL Total Protein (6.3-8.2) g/dL Albumin (3.5-5.1) g/dL Triglycerides Cancelled (<150) mg/dL Lipase 636 H (23-300) U/L Urine Color (Yellow) Urine Appearance (Clear) Urine pH (5.0-9.0) Ur Specific [place] (1.001-1.035) Urine Protein (Negative) mg/dL Urine Glucose (UA) (Negative) mg/dL Urine Ketones (Negative) mg/dL Ur Blood (Man) (Negative) Urine Nitrate (Negative) Urine Bilirubin (Negative) Urine Urobilinogen (<2.0) mg/dL Leukocyte Esterase Rfl (Negative) KHUSHBOO/UL Urine RBC (0-2) /hpf Urine WBC (0-3) /hpf Ur Squamous Epith Cells (Few) /hpf Urine Bacteria /hpf Urine Casts C. difficile (PCR) (NEGATIVE) Discharge Plan Discharge Clinical Impression: Cervical cyst Pancreatitis Qualifiers: Chronicity: acute Pancreatitis type: unspecified pancreatitis type Acute pancreatitis complication: unspecified Qualified Code(s): K85.90 - Acute pancreatitis without necrosis or infection, unspecified Patient Disposition: Still a Patient Condition: Stable
[2024-07-24 22:29] VITALS: TEMP 36.4
[2024-07-24 23:24] LABS: Toxigenic C. Diff NEGATIVE (NEGATIVE)
[2024-07-24] MEDS: FAMOTIDINE 20 MG/2 ML VIAL IV PUSH (23:37)
[2024-07-24] MEDS: ONDANSETRON INJ 4 MG/2 ML VIAL IV PUSH (23:37)
[2024-07-24] MEDS: SODIUM CHLORIDE 0.9% IV 1,000 ML 999 ML IV CONT (23:37)
[2024-07-25 01:06] LABS: Troponin I < 0.012 ng/mL (0.000-0.034)
[2024-07-25 01:23] LABS: Add Urine Microscopic? YES; Appearance Urine Clear (Clear); Bacteria Urine None Seen /hpf; Bilirubin Urine Negative (Negative); Blood Urine Negative (Negative); Color Urine Yellow (Yellow); Glucose Urine UA Negative (Negative); Ketones Urine Trace mg/dL (Negative); Leukocyte Esterase Ur Negative LEU/UL (Negative); Nitrate Urine Negative (Negative); Non Pathogenic Casts 0-2; Protein Urine Trace mg/dL (Negative); RBC Urine 0-2 /hpf (0-2); Specific Grav Ur > 1.045 (1.001-1.035); Squamous Epithelial Cell Urine None Seen /hpf (Few); Urobilinogen Urine 0.2 mg/dL (<2.0); WBC Urine 0-5 /hpf (0-3)
--- NOTE | 2024-07-25 02:05 | PM.IMHP ---
H&P: HPI History of Present Illness Date/Time: 07/25/24 02:05 Chief Complaint: Abdominal pain, nausea, vomiting, diarrhea. Narrative: This is a pleasant 44-year-old female with asthma who presented to the emergency department via private vehicle with complaints of abdominal pain, nausea, vomiting, and diarrhea peer. The patient provides the following history. She had some chips and a few quail eggs for snack last evening and several hours later she developed severe aching pain throughout the upper abdomen and low chest radiating through to the back. Shortly thereafter she developed nausea and reports having innumerable bouts emesis and watery diarrhea. The vomiting has ceased but she continues to have severe diarrhea which she has not been able to control. Additionally she has had some sweats but she denies fever and chills. She also denies syncope, near syncope, exertional chest pain, pleuritic pain, shortness of breath, hematemesis, melena, hematochezia, dysuria, and hematuria. No one in her household has similar symptoms and she has no known sick contacts. In the ED: She was afebrile on arrival with stable vital signs. Labs were significant for WBC count 14.9, carbon dioxide 18, anion gap 13, glucose 164, AST 40, lipase 3279. Urine was concentrated. CT of the abdomen and pelvis was without acute findings. She was given a L of normal saline and famotidine 20 mg and she is being admitted in this setting for further treatment. Review of Systems Review of Systems: 12 systems were reviewed and are negative except for as per HPI. [facility] Past Medical History Medical History (Updated 07/25/24 @ 05:08 by Jacquelyn Cook PA-C) Hernia Osteoarthritis Heartburn Asthma Allergies Surgical History Surgical History (Updated 07/25/24 @ 05:06 by Jacquelyn Cook PA-C) History of endometrial ablation (2010) History of arthroscopy of hip (09/2015) History of cholecystectomy (2001) History of bilateral tubal ligation (2004) Family History Family History Mother Hypertension Asthma Family history of diabetes mellitus in first degree relative Sibling Asthma Family history of diabetes mellitus in first degree relative Father Patient's father is in good health Grandparent Diabetes mellitus Other Breast cancer Social History Social History (Updated 07/25/24 @ 02:08 by Jacquelyn Cook PA-C) Social History: Surrogate medical decision maker: Clint Arias, spouse. Code status: Full code. Smoking packs per day: 1 Smoking cigarettes per day: 20.0 Years smoked: 20 Smoking pack-years: 20.00 Smoking status: Former smoker Alcohol intake: never Alcohol use details: a couple times a year Substance use: never Substance use type: does not use Do You Feel Safe in your Home?: Yes Lack of Transportation: No Lack of Food: Never True Current Housing: I Have Housing Concerned About Future Housing: No Difficulty Paying Gas/Electric Bills: No Difficulty Paying for Meds: No Currently Unemployed: No Education: High School Diploma/GED Difficulty w/ Childcare or Family Care: No Living arrangements: with family Occupation/Education: occupation 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 Spiritual care concerns: No Meds Home Medications and Allergies Home Medications ?Medication ?Instructions ?Recorded ?Confirmed ?Type cyclobenzaprine 10 mg tablet 10 mg PO BID PRN muscle spasm #30 04/30/24 07/25/24 Rx tabs cholecalciferol (vitamin D3) 1,250 1,250 mcg PO WEEKLY #8 caps 05/07/24 07/25/24 Rx mcg (50,000 unit) capsule albuterol sulfate 90 mcg/actuation 1 inh inhalation Q4-6H PRN 06/09/24 07/25/24 Rx aerosol inhaler shortness of breath or wheezing #8.5 grams fluticasone propionate 45 See Rx Instructions .Route 06/10/24 07/25/24 Rx mcg-salmeterol 21 mcg/actuation .COMPLEX #12 grams HFA inhaler Allergies Allergy/AdvReac Type Severity Reaction Status Date / Time adhesive tape Allergy Unknown skin Verified 06/10/24 15:24 breakdown TAPE Allergy Mild skin Uncoded 06/10/24 15:24 [id number] Vital Signs Vital Signs - 24 hr 07/24/24 22:11 07/24/24 22:29 Temperature 97.6 F Pulse Rate 87 Respiratory Rate 19 Blood Pressure 136/101 H Pulse Oximetry 95 Exam Narrative: General: Moderately ill-appearing female in the semi-Hurley position in bed. Weight: 81.1 kg. BMI: 30.0. HEENT: PERRL, EOMI. Sclera anicteric. Conjunctiva mildly injected. Tacky mucous membranes. Neck: Supple. Respiratory: Lungs are clear to auscultation bilaterally. Cardiovascular: Regular rate and rhythm with S1-S2. No murmur, rub, or gallop. Gastrointestinal: Abdomen is soft and nondistended with slightly hyperactive bowel sounds. She is tender to palpation throughout the upper abdomen, more so in the left upper quadrant, and somewhat in the periumbilical region. No guarding or rebound tenderness. Skin: Warm and dry. No rash or lesions on limited exam. Extremities: No cyanosis, clubbing, or edema. Radial and pedal pulses intact. Neurological: Alert. Cranial nerves 2-12 are grossly intact. No gross focal deficits to casual conversation. Psychiatric: Pleasant and cooperative with normal mood and affect. Judgment and insight intact. H&P: Results Labs Labs: Short CBC 07/24/24 Range/Units 21:33 WBC 14.9 H (4.5-10.0) K/mm3 Hgb 14.6 (12.0-15.0) g/dL Hct 43.2 (37.0-47.0) % Plt Count 396 H (150-375) k/mm3 BMP 07/24/24 21:33 Sodium 138 Potassium 3.7 Chloride 106 Carbon Dioxide 19 L BUN 14 Creatinine 0.76 Glucose 164 H Calcium 9.7 Cardiac Enzymes 07/24/24 07/25/24 Range/Units 21:33 00:41 Troponin I < 0.012 < 0.012 (0.000-0.034) ng/mL Liver Function 07/24/24 Range/Units 21:33 Total Bilirubin 0.4 (0.2-1.3) mg/dL AST 40 H (14-36) U/L ALT 33 (6-35) U/L Alkaline Phosphatase 99 (38-126) U/L Albumin 4.5 (3.5-5.1) g/dL Imaging CT scan - abdomen: Radiologist's impression: Preliminary read from [facility]: 1. Multiple cystic lesions in the cervix, likely nabothian cyst. Assessment and Plan Assessment and plan (1) Pancreatitis: Qualifiers: Acute pancreatitis complication: unspecified Chronicity: acute Pancreatitis type: unspecified pancreatitis type Qualified Code(s): K85.90 - Acute pancreatitis without necrosis or infection, unspecified Code(s): K85.90 - Acute pancreatitis without necrosis or infection, unspecified Status: Acute (2) Gastroenteritis: Code(s): K52.9 - Noninfective gastroenteritis and colitis, unspecified Status: Acute (3) Dehydration: Code(s): E86.0 - Dehydration Status: Acute Plan The patient presented to the emergency department for evaluation of fairly sudden onset of upper abdominal pain, nausea, vomiting, and diarrhea last evening as detailed in HPI. Labs, imaging, EKG, and all reports were personally reviewed. It sounds as though she has gastroenteritis however with acute onset would consider food poisoning as well. Lipase was elevated at 3279 and although her pancreas was unremarkable on CT scan she does have tenderness to palpation in this region. She looks quite dry and is being aggressively hydrated. Analgesics and antiemetics are available as needed. She will be on bowel rest for now but can have a few ice chips here and there. She has no previous history of pancreatitis and denies significant alcohol use, new medications, and high triglycerides. Stool studies have been ordered and are pending. No acute issues with regards to her asthma. Her home medications will be reviewed and resumed as appropriate. Findings and treatment plan were discussed with the patient. Questions were solicited and answered to satisfaction. The patient's medical management will be taken over by the hospitalist team in a.m. Quality VTE Prophylaxis VTE prophylaxis: pharmacologic ordered The patient has been admitted under observation status. Hospitalist MIPS Advance Care Plan I have confirmed that the patient's Advanced Care Plan is present, code status is documented, or surrogate decision maker is listed in patient medical record.: Yes Medication Reconciliation I have utilized all available resources to obtain, update and review the patients current medications (includes all prescriptions, OTC, herbals, cannabis, and nutritional supplements).: Yes
[2024-07-25] MEDS: MORPHINE SULFATE (*CRX) 4 MG/ML INJ IV PUSH (02:12)
[2024-07-25] MEDS: SODIUM CHLORIDE 0.9% IV 1,000 ML 120 ML IV CONT (03:25)
[2024-07-25 03:27] VITALS: BMI 31.1
--- NOTE | 2024-07-25 03:34 | ADMGEN ---
This patient, Evette Arias, was admitted to Medical Room 340-01. Patient/family oriented to hospital policies and general routines including ID bracelet, bed and alarms, visiting hours, pain management, procedures, bathroom and other care routines, personal items, smoking policy, room service/diet, and visiting hours. Information on how to activate the Rapid Response Team has been discussed. Patient/Family are encouraged to report perceived risks to care and to ask questions if they do not understand what they are told or what they should do.
[2024-07-25] MEDS: MORPHINE SULFATE (*CRX) 2 MG/ML INJ IV PUSH ×4 (05:17→20:03)
[2024-07-25 06:00] VITALS: BP 117/65; PULSE 76; RESP 18; TEMP 36.6; O2SAT 96
[2024-07-25 06:23] LABS: Basophils Absolute Auto 0.1 K/mm3 (0.0-0.1); Basophils Percent Auto 0.3 % (0.2-1.2); Eosinophils Absolute Auto 0.4 K/mm3 (0-0.3); Eosinophils Percent Auto 2.3 % (0-4.4); Hematocrit 36.1 % (37.0-47.0); Immature Granulocyte Absolute 0.12 K/mm3 (0.00-0.031); Immature Granulocyte Percent A 0.7 % (0-0.5); Lymphocytes Absolute Auto 2.77 K/mm3 (0.9-3.2); Lymphocytes Percent Auto 15.5 % (18.3-44.2); Mean Corpuscular HGB Conc 33.2 g/dl (32-36); Mean Corpuscular Hemoglobin 29.1 pg (26-34); Mean Corpuscular Volume 87.4 fl (80-100); Mean Platelet Volume 9.2 fl (7.4-10.4); Monocytes Absolute Auto 0.6 K/mm3 (0.1-0.6); Monocytes Percent Auto 3.1 % (2.6-8.5); Neutrophils Percent Auto 78.1 % (45.5-73.1); Platelet Count Result 280 k/mm3 (150-375); Red Blood Count 4.13 M/mm3 (4.2-5.4); Red Cell Distribution Width 13.4 % (11.5-14.5); White Blood Count 17.9 K/mm3 (4.5-10.0)
[2024-07-25 06:33] LABS: Alanine Aminotransferase 57 U/L (6-35); Albumin Level 3.4 g/dL (3.5-5.1); Alkaline Phosphatase 68 U/L (38-126); Anion Gap 8 mmol/L (4-12); Aspartate Amino Transferase 50 U/L (14-36); Bilirubin,Total 0.4 mg/dL (0.2-1.3); Blood Urea Nitrogen 13 mg/dL (7-17); Carbon Dioxide 23 mmol/L (22-30); Chloride 108 mmol/L (98-107); Estimated CRCL calculation 82 ml/min; Estimated Glomerular Filt Rate > 60; Glucose 110 mg/dL (65-110); Lipase 636 U/L (23-300); Potassium 4.1 mmol/L (3.4-5.0); Sodium 139 mmol/L (137-145); Triglycerides 124 mg/dL (<150)
[2024-07-25 06:57] LABS: Troponin I < 0.012 ng/mL (0.000-0.034)
--- NOTE | 2024-07-25 08:23 | P.PNIM_ITS ---
Progress Note: A&P Assessment and Plan (1) Pancreatitis: Qualifiers: Acute pancreatitis complication: unspecified Chronicity: acute Pancreatitis type: unspecified pancreatitis type Qualified Code(s): K85.90 - Acute pancreatitis without necrosis or infection, unspecified Code(s): K85.90 - Acute pancreatitis without necrosis or infection, unspecified Status: Acute Assessment and Plan: Lipase was elevated at 3279 and although her pancreas was unremarkable on CT scan she does have tenderness to palpation in this region. Patient s/p cholecystectomy. Denies alcohol abuse. - Lipase 636 - IV LR 125 ml/hr - Analgesics - Diet: clear liquid, advance as tolerated - Monitor vital signs, I and O's, check stool output, neuro status and patient is a fall risk - Monitor serum electrolytes and CBC (2) Gastroenteritis: Code(s): K52.9 - Noninfective gastroenteritis and colitis, unspecified Status: Acute Assessment and Plan: Patient presented to hospital for abdominal pain, nausea/vomiting and diarrhea. Likely related to gastroenteritis. This has since resolved. Viral panel negative Stool culture pending (3) Dehydration: Code(s): E86.0 - Dehydration Status: Acute Assessment and Plan: Likely secondary to vomiting and diarrhea Continue IV fluids for cocurrent pancreatitis Time Spent With Patient Time with patient: 25 - 35 minutes Subjective Date/time seen: 07/25/24 08:23 Interval history: 44-year-old female with past medical history of tubal ligation, s/p cholecystectomy, and asthma who presented to the hospital with complaints of abdominal pain, nausea, vomiting, and diarrhea. Patient is pleasant lying comfortably in bed. She continues to endorse slight epigastric pain but notes that this is improved since admission. She denies any nausea/vomiting. Patient noted to have a leukocytosis 17 on a.m. labs. Patient states that she constantly has a elevated white blood cell count. She denies any chest pain, shortness a breath, palpitations, recent sick contacts. Review of Systems Review of Systems: All systems reviewed & are unremarkable except as noted in HPI and below Exam Narrative: AF HR 75 RR 16 Spo2 95 BP 117/65 General: female in no acute respiratory distress who is nontoxic appearing, lying semi recumbent in bed. HEENT: Normocephalic. Atraumatic. Extraocular movement intact. Sclera clear and anicteric. No facial asymmetry. Chest: Lungs are clear to auscultation bilaterally. CV: Heart was regular rate and rhythm. Abd: Abdomen was soft. Epigastric tenderness to palpation. Nondistended. Positive bowel sounds. Ext: No clubbing, cyanosis, or edema. DP pulses bilaterally. Neuro: Patient is alert and oriented x4. Speech is clear. Objective Data Vital Signs Vital Signs: Vital Signs - 24 hr 07/24/24 22:11 07/24/24 22:29 07/25/24 04:08 Temperature 97.6 F Pulse Rate 87 Respiratory Rate 19 Blood Pressure 136/101 H Pulse Oximetry 95 Oxygen Delivery Room Air 07/25/24 06:00 Temperature 97.8 F Pulse Rate 76 Respiratory Rate 18 Blood Pressure 117/65 Pulse Oximetry 96 Oxygen Delivery Intake/Output Intake/Output: Intake & Output 07/22/24 07/23/24 07/24/24 07/25/24 23:59 23:59 23:59 23:59 Intake Total 1000 Output Total 1 Balance 999 Meds/Results Medications: Active Medications Generic Name Dose Route Start Last Admin Trade Name Freq PRN Reason Stop Dose Admin Albuterol 2 puff 07/25/24 05:11 Albuterol Sulfate (*Sp) Aerosol 1 Puff INHALATION Q4-6H PRN shortness of breath or wheezing Lactated Ringer's 1,000 mls @ 125 mls/hr 07/25/24 02:10 Lr - Lactated Ringers Iv IV CONT .Q8H RUTH Sodium Chloride 1,000 mls @ 120 mls/hr 07/25/24 02:14 07/25/24 03:25 Normal Saline Iv IV CONT 07/25/24 10:33 120 mls/hr .Q8H20M STA Administration Morphine Sulfate 4 mg 07/25/24 02:07 Morphine Sulfate (*Crx) 4 Mg/Ml Inj IV PUSH Q2H PRN Pain Rated 7-10 Morphine Sulfate 2 mg 07/25/24 02:14 07/25/24 05:17 Morphine Sulfate (*Crx) 2 Mg/Ml Inj IV PUSH 2 mg Q4H PRN Administration Pain Rated 4-6 Ondansetron HCl 4 mg 07/25/24 02:14 Ondansetron Inj 4 Mg/2 Ml Vial IV PUSH Q6H PRN Nausea And Vomiting Fluticasone/Salmeterol 2 puff 07/25/24 08:00 Fluticasone/Salmeterol 45-21 Mcg Inhaler 1 Puff INHALATION Q12HRT [facility] Labs Labs: Laboratory Results - last 24 hr 07/24/24 07/24/24 07/24/24 21:33 22:32 23:25 WBC 14.9 H RBC 5.10 Hgb 14.6 Hct 43.2 MCV 84.7 MCH 28.6 MCHC 33.8 RDW 13.2 Plt Count 396 H MPV 9.2 Immature Gran % (Auto) 0.8 H Neut % (Auto) 45.8 Lymph % (Auto) 47.5 H O'Brien % (Auto) 5.3 Eos % (Auto) 0.3 Baso % (Auto) 0.3 Lymph # (Auto) 7.06 H O'Brien # (Auto) 0.8 H Eos # (Auto) 0.0 Baso # (Auto) 0.0 Abs Immat Gran (auto) 0.12 H Absolute Neuts (auto) 6.8 H Absolute Nucleated RBC 0.000 Nucleated RBC % 0.0 PT 12.5 INR 0.9 APTT 23.9 Sodium 138 Potassium 3.7 Chloride 106 Carbon Dioxide 19 L Anion Gap 13 H BUN 14 Creatinine 0.76 Estim Creat Clear Calc 86 Estimated GFR > 60 Glucose 164 H Lactic Acid 2.0 Calcium 9.7 Total Bilirubin 0.4 AST 40 H ALT 33 Alkaline Phosphatase 99 Troponin I < 0.012 Total Protein 8.0 Albumin 4.5 Triglycerides Lipase 3279 H Urine Color Urine Appearance Urine pH Ur Specific [place] Urine Protein Urine Glucose (UA) Urine Ketones Ur Blood (Man) Urine Nitrate Urine Bilirubin Urine Urobilinogen Leukocyte Esterase Rfl Urine RBC Urine WBC Ur Squamous Epith Cells Urine Bacteria Urine Casts C. difficile (PCR) Negative 07/25/24 07/25/24 07/25/24 00:41 01:13 05:55 WBC 17.9 H RBC 4.13 L Hgb 12.0 Hct 36.1 L MCV 87.4 MCH 29.1 MCHC 33.2 RDW 13.4 Plt Count 280 MPV 9.2 Immature Gran % (Auto) 0.7 H Neut % (Auto) 78.1 H Lymph % (Auto) 15.5 L O'Brien % (Auto) 3.1 Eos % (Auto) 2.3 Baso % (Auto) 0.3 Lymph # (Auto) 2.77 O'Brien # (Auto) 0.6 Eos # (Auto) 0.4 H Baso # (Auto) 0.1 Abs Immat Gran (auto) 0.12 H Absolute Neuts (auto) 14.0 H Absolute Nucleated RBC 0.000 Nucleated RBC % 0.0 PT INR APTT Sodium 139 Potassium 4.1 Chloride 108 H Carbon Dioxide 23 Anion Gap 8 BUN 13 Creatinine 0.81 Estim Creat Clear Calc 82 Estimated GFR > 60 Glucose 110 Lactic Acid Calcium 8.0 L Total Bilirubin 0.4 AST 50 H ALT 57 H Alkaline Phosphatase 68 Troponin I < 0.012 < 0.012 Total Protein 6.0 L Albumin 3.4 L Triglycerides 124 Lipase Urine Color Yellow Urine Appearance Clear Urine pH 5.0 Ur Specific [place] > 1.045 H Urine Protein Trace Urine Glucose (UA) Negative Urine Ketones Trace H Ur Blood (Man) Negative Urine Nitrate Negative Urine Bilirubin Negative Urine Urobilinogen 0.2 Leukocyte Esterase Rfl Negative Urine RBC 0-2 Urine WBC 0-5 Ur Squamous Epith Cells None seen Urine Bacteria None seen Urine Casts 0-2 C. difficile (PCR) 07/25/24 05:55 WBC RBC Hgb Hct MCV MCH MCHC RDW Plt Count MPV Immature Gran % (Auto) Neut % (Auto) Lymph % (Auto) O'Brien % (Auto) Eos % (Auto) Baso % (Auto) Lymph # (Auto) O'Brien # (Auto) Eos # (Auto) Baso # (Auto) Abs Immat Gran (auto) Absolute Neuts (auto) Absolute Nucleated RBC Nucleated RBC % PT INR APTT Sodium Potassium Chloride Carbon Dioxide Anion Gap BUN Creatinine Estim Creat Clear Calc Estimated GFR Glucose Lactic Acid Calcium Total Bilirubin AST ALT Alkaline Phosphatase Troponin I Total Protein Albumin Triglycerides Cancelled Lipase 636 H Urine Color Urine Appearance Urine pH Ur Specific [place] Urine Protein Urine Glucose (UA) Urine Ketones Ur Blood (Man) Urine Nitrate Urine Bilirubin Urine Urobilinogen Leukocyte Esterase Rfl Urine RBC Urine WBC Ur Squamous Epith Cells Urine Bacteria Urine Casts C. difficile (PCR) Quality VTE Prophylaxis VTE prophylaxis: pharmacologic ordered
[2024-07-25 08:53] VITALS: PULSE 75; RESP 16; O2SAT 95
[2024-07-25] MEDS: FLUTICASONE/SALMETEROL 45-21 MCG INHALER 1 PUFF 2 PUFF INHALATION ×2 (08:53→19:23)
[2024-07-25 10:36] LABS: Influenza A QL RT-PCR Negative (Negative); Influenza B QL RT-PCR Negative (Negative); RSV RNA, RT-PCR Negative (Negative); SARS-CoV-2 RNA PCR Negative (Negative)
[2024-07-25] MEDS: LACTATED RINGERS 1,000 ML 125 ML IV CONT ×2 (12:09→20:03)
[2024-07-25 14:00] VITALS: BP 108/72; PULSE 82; RESP 18; TEMP 37.1; O2SAT 99
[2024-07-25 21:48] VITALS: BP 106/58; PULSE 82; RESP 20; TEMP 36.6; O2SAT 98
[2024-07-26] MEDS: MORPHINE SULFATE (*CRX) 2 MG/ML INJ IV PUSH ×2 (01:01→06:36)
[2024-07-26] MEDS: LACTATED RINGERS 1,000 ML 125 ML IV CONT (05:14)
[2024-07-26 05:56] LABS: Hematocrit 34.6 % (37.0-47.0); Hemoglobin 11.1 g/dL (12.0-15.0); Mean Corpuscular HGB Conc 32.1 g/dl (32-36); Mean Corpuscular Hemoglobin 28.6 pg (26-34); Mean Corpuscular Volume 89.2 fl (80-100); Platelet Count Result 246 k/mm3 (150-375); Red Blood Count 3.88 M/mm3 (4.2-5.4); Red Cell Distribution Width 13.5 % (11.5-14.5); White Blood Count 8.9 K/mm3 (4.5-10.0)
[2024-07-26 06:00] VITALS: BP 130/73; PULSE 68; RESP 20; TEMP 36.2; O2SAT 98
[2024-07-26 06:05] LABS: Alanine Aminotransferase 48 U/L (6-35); Albumin Level 3.2 g/dL (3.5-5.1); Alkaline Phosphatase 64 U/L (38-126); Anion Gap 3 mmol/L (4-12); Aspartate Amino Transferase 34 U/L (14-36); Bilirubin,Total 0.4 mg/dL (0.2-1.3); Blood Urea Nitrogen 8 mg/dL (7-17); Calcium 8.3 mg/dL (8.4-10.2); Carbon Dioxide 28 mmol/L (22-30); Chloride 107 mmol/L (98-107); Estimated CRCL calculation 94 ml/min; Estimated Glomerular Filt Rate > 60; Glucose 105 mg/dL (65-110); Potassium 3.8 mmol/L (3.4-5.0); Sodium 138 mmol/L (137-145)
[2024-07-26] MEDS: FLUTICASONE/SALMETEROL 45-21 MCG INHALER 1 PUFF 2 PUFF INHALATION (08:18)
[2024-07-26 10:32] LABS: Lipase 73 U/L (23-300)
--- NOTE | 2024-07-26 14:50 | P.DS_ITS ---
DS: Admitting Diagnosis Discharge Date 07/26/2024 Admitting Diagnosis pancreatitis gastroenteritis dehydration DS: Discharge Diagnosis Discharge Diagnosis (1) Pancreatitis: Qualifiers: Acute pancreatitis complication: unspecified Chronicity: acute Pancreatitis type: unspecified pancreatitis type Qualified Code(s): K85.90 - Acute pancreatitis without necrosis or infection, unspecified Code(s): K85.90 - Acute pancreatitis without necrosis or infection, unspecified Status: Acute (2) Gastroenteritis: Code(s): K52.9 - Noninfective gastroenteritis and colitis, unspecified Status: Acute (3) Dehydration: Code(s): E86.0 - Dehydration Status: Acute DS: Summary Hospital Course Reason for hospitalization: pancreatitis gastroenteritis dehydration Hospital Course: 44-year-old female with past medical history of tubal ligation, s/p cholecystectomy, and asthma who presented to the hospital with complaints of abdominal pain, nausea, vomiting, and diarrhea. Vitals stable, not meeting sepsis criteria on admission. Leukocytosis noted, which resolved without antibiotic intervention. Stool culture negative. Possible gastroenteritis. Lipase was elevated at 3279 and although her pancreas was unremarkable on CT scan she does have tenderness to palpation in this region. Patient s/p cholecystectomy. Denies alcohol abuse. Patient started on bowel rest and IV fluids. Lipase returned to normal limits and nausea/vomiting/abdominal pain resolved. Able to be advanced to low fat diet, tolerating well. Patient has no complaints at time of discharge denying chest pain, shortness a breath, palpitations, nausea/vomiting, and abdominal pain. Patient discharged home with family in a stable condition. This is a follow-up with her primary care provider in 1 week. Status at Discharge Functional status at discharge: independent ambulation Time Spent with Patient Time attestation: Total time spent providing and/or coordinating discharge services: Time spent: Greater than 30 minutes Exam Narrative: AF HR 68 RR 20 SpO2 98 BP 130/73 General: female in no acute respiratory distress who is nontoxic appearing, lying semi recumbent in bed. HEENT: Normocephalic. Atraumatic. Extraocular movement intact. Sclera clear and anicteric. No facial asymmetry. Chest: Lungs are clear to auscultation bilaterally. CV: Heart was regular rate and rhythm. Abd: Abdomen was soft. Nontender to palpation. Nondistended. Positive bowel sounds. Ext: No clubbing, cyanosis, or edema. DP pulses bilaterally. Neuro: Patient is alert and oriented x4. Speech is clear. DS: Data Data Completed and Pending Completed studies during hospitalization: abdomen/pelvis ct chest xr Labs on day of discharge: Labs from last 24 hours 07/26/24 07/24/24 05:30 22:32 WBC 8.9 RBC 3.88 L Hgb 11.1 L Hct 34.6 L MCV 89.2 MCH 28.6 MCHC 32.1 RDW 13.5 Plt Count 246 MPV 9.0 Sodium 138 Potassium 3.8 Chloride 107 Carbon Dioxide 28 Anion Gap 3 L BUN 8 D Creatinine 0.70 Estim Creat Clear Calc 94 Estimated GFR > 60 Glucose 105 Calcium 8.3 L Total Bilirubin 0.4 AST 34 ALT 48 H Alkaline Phosphatase 64 Total Protein 6.0 L Albumin 3.2 L Lipase 73 Stool Norovirus (PCR) Pending Discharge Plan Discharge Attending physician on discharge: James Vera Discharging Clinician: Nereyda Abarca Anticipated Discharge Date/Time: 07/26/24 14:47 Patient Disposition: Home, Self-Care Activity: as tolerated Diet: as tolerated and low fat Discharge Instructions: Discharge disposition: Patient admitted to the hospital for nausea/vomiting/diarrhea with concerns of pancreatitis versus gastroenteritis Given IV fluids and pancreatitis has since resolved Continue low-fat diet Take caution while standing, rising, or moving Change positions slowly taking a break between each position change If you standing feel dizzy sit back down and take a break Encouraged to continue with yearly vaccinations Return to the emergency department if he developed sudden shortness of breath, chest pain, nausea, vomiting, upset stomach or intractable diarrhea Return to the emergency department if you develop fever greater than 101.5 Follow-up with the primary care physician within 1-2 weeks Thank you for [facility] for your healthcare needs Patient Instructions: Pancreatitis (DC), Dehydration (DC), Gastroenteritis (ED), Acute Nausea and Vomiting (DC) Patient Language: Turkmen Stand Alone Forms: General Discharge Information Follow-up/Referrals: Aron Maxwell, DO [Primary Care Provider] - 1 Week Discharge Medications: Continued fluticasone propion-salmeterol 45-21 mcg/actuation HFA aerosol inhaler See Rx Instructions .ROUTE .COMPLEX Qty: 12 2RF Dose Instruction: INHALE 2 PUFFS BY MOUTH EVERY 12 HOURS Rx Instructions: INHALE 2 PUFFS BY MOUTH EVERY 12 HOURS cyclobenzaprine 10 mg tablet 10 mg PO BID PRN (Reason: muscle spasm) Qty: 30 0RF cholecalciferol (vitamin D3) 1,250 mcg (50,000 unit) capsule 1,250 mcg PO WEEKLY Qty: 8 0RF albuterol sulfate 90 mcg/actuation HFA aerosol inhaler 1 inh inhalation Q4-6H PRN (Reason: shortness of breath or wheezing) Qty: 8.5 1RF Date of admission: 07/25/24 07:45 Primary Care Provider: Aron Maxwell Admitting Provider: James Vera Attending physician on admission: Nereyda Abarca Condition: Stable Hospitalist MIPS Heart Failure (Exclusion) Patient has history of Heart Transplant or Left Ventricular Assistive Device?: No IF YES, STOP HERE Heart Failure (Qualifier) Patient has current or prior documentation of LVEF less than or equal to 40%, or mod/servere depressed LVSF?: No IF NO, STOP HERE
[2024-07-28 14:28] LABS: Norovirus RNA PCR, Stool NOT DETECTED
== END 2024-07-26 17:45 | disposition home or self-care (01) | DRG 440 ==
LOC: ANHED 07-25 02:03 → ANH3MED 07-25 02:31
PROVIDERS: Emergency Medicine; Physician Assistant; Admitting Provider Internal Medicine; Emergency Provider Physician Assistant; PCP Internal Medicine; Visit Provider Student in an Organized Health Care Education/Training Program
DX: K85.90 Acute pancreatitis without necrosis or infection, unspecified (principal); K52.9 Noninfective gastroenteritis and colitis, unspecified; E86.0 Dehydration; J45.909 Unspecified asthma, uncomplicated; Z87.891 Personal history of nicotine dependence; Z90.49 Acquired absence of other specified parts of digestive tract; Z20.822 Contact with and (suspected) exposure to COVID-19
CPT/HCPCS: 36415; 71045; 74177; 80053; 81001; 83605; 83690; 84478; 84484; 85025; 85027; 85610; 85730; 87045; 87427; 87449; 87493; 87637; 87798; 93005; 94640; 96361; 96374; 96375; 96376; 99285; A9270; G0378; J2270; J2405; J7030; J7120; Q9967